=== PATIENT | female | born 1955 ===

== ENCOUNTER 2017-01-13 13:20 | Emergency (ER) | payer OTHER ==
[2017-01-13 13:20] VITALS: BMI 26.7
[2017-01-13 13:28] VITALS: BP 123/81; PULSE 73; RESP 18; TEMP 97.5; O2SAT 95
--- NOTE | 2017-01-13 16:29 | C.PDOC ---
History Of Present Illness 61 yr old female with PMHx of osteoarthritis and Rheumatoid Arthritis, presents to the ER with diffuse body pains. Patient states she normally gets monthly injections for the pain and was suppose to go yesterday but was unable to. Patient denies recent trauma, chest pain, SOB, weakness or numbness. Time Seen by Provider: 01/13/17 13:41 Chief Complaint (Nursing): Pain, Chronic History Per: Patient History/Exam Limitations: no limitations Onset/Duration Of Symptoms: Persistent Current Symptoms Are (Timing): Still Present Past Medical History Reviewed: Historical Data, Nursing Documentation, Vital Signs Vital Signs: Last Vital Signs Temp 97.5 F L 01/13/17 13:24 Pulse 73 01/13/17 13:24 Resp 18 01/13/17 13:24 BP 123/81 01/13/17 13:24 Pulse Ox 95 01/13/17 16:37 - Medical History PMH: Anxiety, Arthritis, Asthma, Depression, HTN, Hypercholesterolemia, Hyperthyroidism, Hypothyroidism, Osteoporosis, Rheumatoid Arthritis, Chronic Pain (neck pain) - [facility] Procedures ANESTH INJECT-SPIN CANAL (11/19/14) CERVICAL SPINE X-RAY NEC (07/24/13) INJECT STEROID (11/19/14) INJECT/INFUSE NEC (11/18/13) LUMBOSAC SPINE X-RAY NEC (11/19/14) SPINAL CANAL INJECT NEC (11/19/14) Family History: States: No Known Family Hx - Social History Hx Tobacco Use: No Hx Alcohol Use: No Hx Substance Use: No - Immunization History Hx Tetanus Toxoid Vaccination: No Hx Influenza Vaccination: Yes Hx Pneumococcal Vaccination: No Review Of Systems Except As Marked, All Systems Reviewed And Found Negative. Constitutional: Positive for: Other ((+) Diffuse body pain ) Cardiovascular: Negative for: Chest Pain Respiratory: Negative for: Shortness of Breath Neurological: Negative for: Weakness, Numbness Physical Exam - Physical Exam Appears: Non-toxic, No Acute Distress Skin: Warm, Dry, No Rash Head: Atraumatic, Normacephalic Chest: Symmetrical, No Tenderness Cardiovascular: Rhythm Regular, No Murmur Respiratory: Normal Breath Sounds, No Rales, No Rhonchi, No Stridor, No Wheezing Extremity: Other (Osteoarthritis and RA joint changes to bilateral legs and hands. ) Neurological/Psych: Oriented x3, Normal Speech, Normal Motor ED Course And Treatment O2 Sat by Pulse Oximetry: 95 (RA ) Pulse Ox Interpretation: Normal Medical Decision Making Medical Decision Making: PLAN: * Flexeril PO * Toradol IM Disposition - Disposition Referrals: Elizabeth Cadena, [Non-Staff] - Disposition: HOME/ ROUTINE Disposition Time: 13:50 Condition: GOOD Additional Instructions: Thank you for letting us take care of you today. Your provider was Dr. Mccormack. You were treated for chronic rheumatoid arthritis. The emergency medical care you received today was directed at your acute symptoms. If you were prescribed any medication, please fill it and take as directed. It may take several days for your symptoms to resolve. Return to the Emergency Department if your symptoms worsen, do not improve, or if you have any other problems. Please contact your doctor or call one of the physicians/clinics you have been referred to that are listed on the Patient Visit Information form that is included in your discharge packet. Bring any paperwork you were given at discharge with you along with any medications you are taking to your follow up visit. Our treatment cannot replace ongoing medical care by a primary care provider (PCP) outside of the emergency department. Thank you for allowing the [facility] team to be part of your care today. Follow up with your pain management doctor as scheduled (in 3 days). Prescriptions: Ibuprofen [Motrin] 800 mg PO Q6 PRN #20 tab PRN Reason: Pain, Moderate (4-7) Instructions: Rheumatoid Arthritis (ED) Forms: [employer] (Latvian) - Clinical Impression Clinical Impression: Body aches - Scribe Statement The provider has reviewed the documentation as recorded by the [place] Provider Attestation: All medical record entries made by the Antionette[facility]fadumo were at my direction and personally dictated by me. I have reviewed the chart and agree that the record accurately reflects my personal performance of the history, physical exam, medical decision making, and the department course for this patient. I have also personally directed, reviewed, and agree with the discharge instructions and disposition.
== END 2017-01-13 13:59 | disposition home or self-care (01) ==
LOC: C.ER 13:20
DX: M06.9 Rheumatoid arthritis, unspecified (principal)
CPT/HCPCS: 96372; 99284; J1885